=== PATIENT | female | born 1995 | race Two or more races ===

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

== ENCOUNTER 2017-05-13 17:08 | Emergency (ER) | payer SELFPAY ==
[2017-05-13] MEDS ORDERED: Ibuprofen TAB* 600 MG PO ONE (18:56)
[2017-05-13 19:16] VITALS: BP 94/60
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
== END 2017-05-13 19:15 | disposition home or self-care (01) ==
LOC: ED 17:08
DX: S00.03XA Contusion of scalp, initial encounter (principal); S50.01XA Contusion of right elbow, initial encounter; V47.1XXA Car passenger injured in collision with fixed or stationary object in nontraffic accident, initial encounter; Y93.9 Activity, unspecified; Y92.9 Unspecified place or not applicable; Y99.9 Unspecified external cause status
CPT/HCPCS: 99281; A9270-GY